=== PATIENT | male | born 1970 | race Caucasian/White ===

== ENCOUNTER 2017-02-03 22:27 | Emergency (ER) | payer OTHER ==
[2017-02-03 22:35] VITALS: BP 135/78; PULSE 77; TEMP 98.7; BMI 34.9
--- NOTE | 2017-02-03 22:41 | PDOC ---
History of Present Illness - General Chief Complaint: Edema Stated Complaint: LT LEG SWELLING Time Seen by Provider: 02/03/17 22:31 History Source: Patient Exam Limitations: No Limitations - History of Present Illness Initial Comments: 02/03/17 22:42 This is a 47-year-old male who has a strong family history of DVT/blood clots. Patient has been doing extensive workouts and the over the last couple weeks has noticed progressive swelling of his left calf with some pain in the calf as well as his left groin. Patient denies any change in temperature to his leg or foot. Patient denies any shortness of breath, cough, chest pain, palpitations or any other complaints. PAST MEDICAL HISTORY: no significant history PAST SURGICAL HISTORY: no significant history FAMILY HISTORY: no pertinant history SOCIAL HISTORY: Pt lives with family and is employed. MEDICATIONS: reviewed ALLERGIES: As per nursing notes Review of Systems General: No fevers or chills, no weakness, no weight loss HEENT: No change in vision. No sore throat,. No ear pain CardioVascular: No chest pain or shortness of breath Respiratory:No cough, or wheezing. Gastrointestinal: no nausea, vomitting, diarrhea or constipation, No rectal bleeding Genitourinary: No dysuria, hematuria, or frequency Musculoskeletal: No joint or muscle pain or swelling Neurologic: No headache, vertigo, dizziness or loss of consciousness Psychiatric: nor depression Skin: No rashes or easy bruising Endocrine: no increased thirst or abnormal weight change Allergic: no skin or latex allergy All other systems reviewed and normal GENERAL: The patient is awake, alert, and fully oriented, in no acute distress. HEAD: Normal with no signs of trauma. EYES: Pupils equal, round and reactive to light, extraocular movements intact, sclera anicteric, conjunctiva clear. EXTREMITIES: Normal range of motion, no edema. Left lower extremity, there is some swelling and tenderness of the posterior calf area. There is no tender palpable cord of the groin or upper leg. Neurovascular distal is intact, cap refill distally is normal. NEUROLOGICAL: Normal speech, normal gait. PSYCH: Normal mood, normal affect. SKIN: Warm, Dry, normal turgor, no rashes or lesions noted. 02/03/17 23:37 Ultrasound was negative for DVT. Assessment and plan: This is a 47-year-old male who comes in complaining of left lower extremity pain and swelling. Patient had an ultrasound Doppler that was negative for DVT. Patient is otherwise healthy and was referred back to his primary care doctor for follow-up. Past History - Past Medical History Allergies/Adverse Reactions: Allergies Allergy/AdvReac Type Severity Reaction Status Date / Time No Known Allergies Allergy Unverified 02/03/17 22:28 Home Medications: Ambulatory Orders Mv,Iron,Min/Folic Acid/Biotin [Hair Formula Tablet] 1 each PO DAILY 02/03/17 HTN: Yes Hypercholesterolemia: Yes - Psycho/Social/Smoking Cessation Hx Anxiety: No Suicidal Ideation: No Smoking History: Current every day smoker Have you smoked in the past 12 months: Yes Number of Cigarettes Smoked Daily: 0 Cigars Per Day: 1 Information on smoking cessation initiated: Yes 'Breaking Loose' booklet given: 02/03/17 *Physical Exam - Vital Signs Last Vital Signs Temp Pulse Resp BP Pulse Ox 98.7 F 77 16 135/78 96 02/03/17 22:30 02/03/17 22:30 02/03/17 22:30 02/03/17 22:30 02/03/17 22:30 *DC/Admit/Observation/Transfer Diagnosis at time of Disposition: Swelling of left lower extremity - Discharge Dispostion Disposition: HOME Condition at time of disposition: Stable Admit: No - Patient Instructions Additional Instructions: Rest and elevate the leg as much as U can over the weekend, and follow-up with your primary care on Monday if not improved. Return to the emergency department immediately with ANY new, persistent or worsening symptoms. Continue any medications as previously prescribed by your physician. You should follow up with your primary doctor as soon as possible regarding today's emergency department visit. . Please make sure your doctor reviews the results of your emergency evaluation. Thank you for coming to the Emergency Department today for your care. It was a pleasure to see you today. Please note that your evaluation is INCOMPLETE until you follow-up with your doctor.
== END 2017-02-03 23:56 | disposition home or self-care (01) ==
LOC: FER 22:27
DX: M79.89 Other specified soft tissue disorders (principal); I10 Essential (primary) hypertension; F17.210 Nicotine dependence, cigarettes, uncomplicated
CPT/HCPCS: 93971-TC; 99281-25